=== PATIENT | female | born 1970 | race Two or more races ===

== ENCOUNTER 2021-01-23 15:35 | Outpatient (CLI) | payer OTHER | END 2021-01-23 17:00 | disposition home or self-care (01) | LOC: PPH VACUNA 15:35 | PROVIDERS: ATTEND Emergency Medicine Pediatric Emergency Medicine | DX: Z23 Encounter for immunization (principal) ==

== ENCOUNTER 2024-08-05 10:39 | Outpatient (CLI) | payer OTHER | END 2024-08-05 10:46 | disposition home or self-care (01) | LOC: RAD 10:39 | PROVIDERS: ATTEND Internal Medicine Rheumatology | DX: M15.0 Primary generalized (osteo)arthritis (principal) ==